=== PATIENT | female | born 2005 | race African-American/Black ===

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

== ENCOUNTER 2023-07-16 19:29 | Emergency (ER) | payer OTHER, SELFPAY | END 2023-07-16 22:25 | disposition home or self-care (01) | LOC: ERS 19:29 | DX: H10.9 Unspecified conjunctivitis (principal) | CPT/HCPCS: 99282 ==